=== PATIENT | male | born 1950 | race Hispanic/Latino ===

== ENCOUNTER 2017-03-29 09:47 | Inpatient (IN) | payer MEDICARE ==
[~2017-03-29] VITALS: Ht 165.1 cm; Wt 62.3 kg
[2017-03-29 13:27] LABS: BASOPHILS % (AUTO) 0.4 % (0.0-5.0); EOSINOPHILS % (AUTO) 0.6 % (0.0-8.0); HEMATOCRIT 30.3 % (42-54); LYMPHOCYTES % (AUTO) 11.8 % (21.0-51.0); MEAN CORPUSCULAR HEMOGLOBIN 28.8 pg (27.0-33.0); MEAN CORPUSCULAR HGB CONC 33.4 g/dL (32.0-36.0); MEAN CORPUSCULAR VOLUME 86.2 fL (79-99); MONOCYTES % (AUTO) 5.9 % (3.0-13.0); NEUTROPHILS % (AUTO) 81.3 % (40.0-77.0); PLATELET COUNT (AUTO) 235 K/uL (130-400); RED BLOOD CELL COUNT(AUTO) 3.52 MIL/uL (4.50-6.20); WHITE BLOOD COUNT (AUTO) 11.4 K/uL (4.8-10.8)
[2017-03-29 13:34] LABS: CARBON DIOXIDE 32 mmol/L (21-32); CHLORIDE 100 mmol/L (101-111); CREATININE 0.7 mg/dL (0.5-1.5); GLOMERULAR FILTR. RATE CALC 119 mL/min (>60); GLUCOSE,RANDOM 116 mg/dL (70-105); POTASSIUM 3.4 mmol/L (3.5-5.1); SODIUM SERUM 136 mmol/L (136-145); UREA NITROGEN, BLOOD 12 mg/dL (7-18)
[2017-03-29] MEDS ORDERED: LEVOFLOXACIN 500 MG/D5W 100 ML 100 ML ONE (13:44)
[2017-03-29] MEDS ORDERED: CEFTRIAXONE SODIUM 1 GM ONE (13:44)
[2017-03-29 13:48] LABS: ALANINE AMINOTRANSFERASE 60 U/L (12-78); ALBUMIN 2.2 g/dL (3.5-5.0); AMYLASE 47 U/L (25-115); ASPARTATE AMINOTRANSFERASE 156 U/L (10-37); BILIRUBIN,TOTAL 2.4 mg/dL (0.2-1.0); CREATINE KINASE MB < 0.5 ng/mL (0.5-3.6); LIPASE 135 U/L (114-286); TOTAL PROTEIN, SERUM 8.8 g/dL (6.0-8.3)
[2017-03-29 14:23] LABS: INR 0.97 (0.85-1.15); PARTIAL THROMBOPLASTIN TIME 24.5 SEC (26.3-35.5); PROTHROMBIN TIME 10.2 SEC (9.6-11.6)
[2017-03-29 15:01] LABS: APPEARANCE,URINE CLOUDY (CLEAR); BILIRUBIN,URINE LARGE (NEGATIVE); COLOR,URINE ORANGE (YELLOW); GLUCOSE, URINE (UA) NEGATIVE (NEGATIVE); KETONES,URINE NEGATIVE (NEGATIVE); LEUKOCYTE ESTERASE ,URINE TRACE (NEGATIVE); NITRATE,URINE NEGATIVE (NEGATIVE); OCCULT BLOOD,URINE LARGE (NEGATIVE); PROTEIN,URINE 30 (NEGATIVE); UROBILINOGEN,URINE >=8.0 mg/dL (0.2-1.0)
[2017-03-29] MEDS ORDERED: VANCOMYCIN 1GM+NS 250ML 250 ML IV ONE (15:02)
[2017-03-29] MEDS ORDERED: OSELTAMIVIR PHOSPHATE 75 MG CAP ONE (15:20)
[2017-03-29 15:53] LABS: BACTERIA,URINE Rare /HPF (None Seen); RBC,URINE >100 /HPF (0-1); SQUAMOUS EPITHELIAL CELL,UR Rare /LPF (0-2)
[2017-03-29] MEDS ORDERED: METOCLOPRAMIDE 5 MG TABLET ONE (17:20)
[2017-03-29] MEDS ORDERED: ENOXAPARIN SODIUM 40 MG/0.4 ML SYRINGE SQ ONE (17:20)
[2017-03-29 20:00] VITALS: BP 158/86
[2017-03-29 23:43] VITALS: BP 147/77
[2017-03-29] MEDS ORDERED: PHARMACY COMMUNICATION MISC SCH (23:45)
[2017-03-29] MEDS ORDERED: VANCOMYCIN PROTOCOL PER PHARMACY IV SCH (23:45)
[2017-03-30] MEDS: METOCLOPRAMIDE 5 MG TABLET PEG SCH ×4 (00:28→23:01)
[2017-03-30] MEDS ORDERED: FAMO20TA8 PEG (03:45)
[2017-03-30] MEDS ORDERED: MULT-248 PEG (03:45)
[2017-03-30] MEDS ORDERED: CLOP75TA14 PEG (03:45)
[2017-03-30] MEDS ORDERED: FOLI1TAB15 PEG (03:45)
[2017-03-30] MEDS ORDERED: AMIO200T2 PEG (03:45)
[2017-03-30] MEDS ORDERED: SENN-155 PEG (03:45)
[2017-03-30] MEDS ORDERED: LISI10TA7 PEG (03:45)
[2017-03-30] MEDS ORDERED: CALC-724 PEG (03:45)
[2017-03-30] MEDS ORDERED: ACET650S14 RC (03:45)
[2017-03-30] MEDS ORDERED: LOVA40TA2 PEG (03:45)
[2017-03-30] MEDS ORDERED: AMLO10TA2 PEG (03:45)
[2017-03-30] MEDS ORDERED: PHEN100O5 PEG (03:45)
[2017-03-30] MEDS ORDERED: ALBU2.5V2 IH (03:45)
[2017-03-30] MEDS ORDERED: OSEL75 PEG (03:45)
[2017-03-30] MEDS ORDERED: ACET-2900 PEG (03:45)
[2017-03-30 04:00] VITALS: BP 145/72
[2017-03-30] MEDS ORDERED: ALBUTEROL SULFATE 0.083% 2.5 MG/3 ML INH IH PRN (04:00)
[2017-03-30] MEDS ORDERED: ACETAMINOPHEN 650 MG SUPPOSITORY RC PRN (04:00)
[2017-03-30] MEDS ORDERED: ACETAMINOPHEN EXTENDED RELEASE 650 MG TABLET PEG PRN (04:00)
[2017-03-30 05:07] LABS: HEMATOCRIT 25.3 % (42-54); MEAN CORPUSCULAR HEMOGLOBIN 32.2 pg (27.0-33.0); MEAN CORPUSCULAR HGB CONC 37.3 g/dL (32.0-36.0); MEAN CORPUSCULAR VOLUME 86.2 fL (79-99); PLATELET COUNT (AUTO) 206 K/uL (130-400); RED BLOOD CELL COUNT(AUTO) 2.94 MIL/uL (4.50-6.20); RED CELL DISTRIBUTION WIDTH 14.1 % (11.0-15.5); WHITE BLOOD COUNT (AUTO) 6.1 K/uL (4.8-10.8)
[2017-03-30 05:20] LABS: CREATININE 0.8 mg/dL (0.5-1.5); PHOSPHORUS 3.7 mg/dL (2.5-4.9); POTASSIUM 3.1 mmol/L (3.5-5.1)
[2017-03-30] MEDS ORDERED: ACETAMINOPHEN ELIXIR 650 MG/20.3 ML UDCUP PEG PRN (05:45)
[2017-03-30 07:44] VITALS: BP 157/91
[2017-03-30] MEDS: SENNA PLUS PO SCH ×2 (09:00→21:00)
[2017-03-30] MEDS: MULTIVITAMIN TABLET PEG SCH (09:00)
[2017-03-30] MEDS ORDERED: POTASSIUM CHLORIDE 20 MEQ ERTAB PO SCH (09:15)
[2017-03-30 11:32] VITALS: BP 150/90
[2017-03-30] MEDS: LISINOPRIL 10 MG TABLET PEG SCH (13:06)
[2017-03-30] MEDS: FAMOTIDINE 20MG TAB 20 MG TAB PEG SCH ×2 (13:06→23:01)
[2017-03-30] MEDS: AMLODIPINE BESYLATE 5 MG TAB PO SCH (13:06)
[2017-03-30] MEDS: CLOPIDOGREL BISULFATE 75 MG TAB PEG SCH (13:06)
[2017-03-30] MEDS: AMIODARONE HCL 200 MG TABLET PO SCH ×2 (13:07→23:01)
[2017-03-30] MEDS: PHENYTOIN 100 MG/4 ML UDCUP PEG SCH ×2 (13:08→23:00)
[2017-03-30] MEDS: CALCIUM 600 + VITAMIN D 400 TABLET PO SCH ×2 (13:08→23:01)
[2017-03-30] MEDS: FOLIC ACID 1 MG TABLET PEG SCH (13:08)
[2017-03-30] MEDS: OSELTAMIVIR PHOSPHATE 75 MG CAP PEG SCH ×2 (13:09→23:01)
[2017-03-30] MEDS: LEVOFLOXACIN 500 MG/D5W 100 ML 100 ML IV SCH (13:10)
[2017-03-30] MEDS: VANCOMYCIN 1GM+NS 250ML 250 ML IV SCH ×2 (13:10→23:00)
[2017-03-30] MEDS: ENOXAPARIN SODIUM 40 MG/0.4 ML SYRINGE SQ SCH (13:11)
[2017-03-30 15:47] VITALS: BP 141/93
[2017-03-30 20:00] VITALS: BP 140/76
[2017-03-30] MEDS ORDERED: ATORVASTATIN CALCIUM 10 MG TABLET PEG SCH (21:00)
[2017-03-31] VITALS: BP 150/65
[2017-03-31 04:00] VITALS: BP 162/72
[2017-03-31 07:00] VITALS: BP 139/71
[2017-03-31] MEDS: SENNA PLUS PO SCH (09:00)
[2017-03-31] MEDS: ENOXAPARIN SODIUM 40 MG/0.4 ML SYRINGE SQ SCH (09:00)
[2017-03-31] MEDS ORDERED: LEVO500T89 PO (09:14)
[2017-03-31] MEDS: CLOPIDOGREL BISULFATE 75 MG TAB PEG SCH (10:21)
[2017-03-31] MEDS: LISINOPRIL 10 MG TABLET PEG SCH (10:32)
[2017-03-31] MEDS: FAMOTIDINE 20MG TAB 20 MG TAB PEG SCH (10:33)
[2017-03-31] MEDS: OSELTAMIVIR PHOSPHATE 75 MG CAP PEG SCH (10:33)
[2017-03-31] MEDS: CALCIUM 600 + VITAMIN D 400 TABLET PO SCH (10:33)
[2017-03-31] MEDS: AMIODARONE HCL 200 MG TABLET PO SCH (10:33)
[2017-03-31] MEDS: AMLODIPINE BESYLATE 5 MG TAB PO SCH (10:33)
[2017-03-31] MEDS: METOCLOPRAMIDE 5 MG TABLET PEG SCH ×2 (10:33→17:13)
[2017-03-31] MEDS: MULTIVITAMIN TABLET PEG SCH (10:33)
[2017-03-31] MEDS: FOLIC ACID 1 MG TABLET PEG SCH (10:34)
[2017-03-31] MEDS: PHENYTOIN 100 MG/4 ML UDCUP PEG SCH (10:40)
[2017-03-31] MEDS: LEVOFLOXACIN 500 MG/D5W 100 ML 100 ML IV SCH ×2 (14:00→17:04)
[2017-03-31 16:20] VITALS: BP 140/73
[2017-03-31] MEDS ORDERED: LEVOFLOXACIN 500 MG TABLET ONE (17:11)
== END 2017-03-31 19:30 | DRG 194 ==
LOC: EDH 09:47 → EDHIP 14:20 → 3CH 18:31
PROVIDERS: ADMIT Internal Medicine Nephrology; ATTEND Internal Medicine Nephrology
DX: J18.9 Pneumonia, unspecified organism (principal); E44.0 Moderate protein-calorie malnutrition; Z93.1 Gastrostomy status; E11.9 Type 2 diabetes mellitus without complications; I10 Essential (primary) hypertension; D72.829 Elevated white blood cell count, unspecified; R11.2 Nausea with vomiting, unspecified; Z86.73 Personal history of transient ischemic attack (TIA), and cerebral infarction without residual deficits; Z88.0 Allergy status to penicillin; Z88.8 Allergy status to other drugs, medicaments and biological substances; Z82.49 Family history of ischemic heart disease and other diseases of the circulatory system
CPT/HCPCS: 36415; 71045; 76705; 80048; 80053; 81001; 82150; 82553; 82948; 83605; 83690; 84100; 84132; 84484; 85025; 85027; 85610; 85730; 87040; 87804; 93005; 94664; J0696; J1650; J1956; J3370